=== PATIENT | male | born 1980 | race Caucasian/White ===

== ENCOUNTER 2016-08-02 06:41 | Day surgery (SDC) | payer MEDICAID ==
[2016-08-02] MEDS ORDERED: Lactated Ringers 1,000 ML IV SCH (08:30)
[2016-08-02] MEDS ORDERED: Propofol 200 MG/20 ML SDV IV ONE (09:10)
--- NOTE | 2016-08-02 09:39 | PCM.OPNOTE ---
- General Post-Op/Procedure Note Date of Surgery/Procedure: 08/02/16 Operative Procedure(s): c scope Findings: diffuse colitis Pre Op Diagnosis: bleeding per rectum Post-Op Diagnosis: diffuse colitis Anesthesia Technique: MAC Primary Surgeon: Leonidas Nieto Anesthesia Provider: Amrik Bustamante Pathology: random biopsies Complications: None Condition: Good Free Text/Narrative:: see dictation
[2016-08-02 11:07] VITALS: BP 132/90
--- NOTE | 2016-08-02 13:31 | OR ---
DATE OF OPERATION: 08/02/2016 SURGEON: Leonidas Nieto MD PROCEDURE PERFORMED: Colonoscopy with random colon biopsy. PREOPERATIVE DIAGNOSIS: Lower abdominal pain and bleeding per rectum. POSTOPERATIVE DIAGNOSIS: Diffuse colitis. INDICATIONS FOR PROCEDURE: This is a 36-year-old white male, who was referred with the above-mentioned complaints. He was offered and accepted colonoscopy. DESCRIPTION OF OPERATION: After an excellent IV sedation was administered, digital rectal exam was performed. No marked abnormality was noted. The flexible colonoscope was inserted and advanced to the cecum without difficulty. The prep was excellent. The following findings were noted. Ascending colon with diffuse colitis, random biopsies were taken. Transverse colon, diffuse colitis, random biopsies were taken. Descending colon, diffuse colitis, random biopsies were taken. Sigmoid and rectum, diffuse colitis, random biopsies were taken. The colon was deflated, scope was removed. The patient tolerated the procedure well, and was taken to recovery room in good condition. /[id number]
== END 2016-08-02 10:45 | disposition home or self-care (01) ==
LOC: FB.SDS 06:41 → EDBD 09:00 → FB.SDS 10:45
PROVIDERS: ATTEND Surgery
DX: K52.9 Noninfective gastroenteritis and colitis, unspecified (principal); J30.81 Allergic rhinitis due to animal (cat) (dog) hair and dander; J30.1 Allergic rhinitis due to pollen; Z79.899 Other long term (current) drug therapy; F17.210 Nicotine dependence, cigarettes, uncomplicated
CPT/HCPCS: 45380; 88305; J2704; J7120